=== PATIENT | female | born 1980 | race Caucasian/White ===

== ENCOUNTER 2021-03-30 15:19 | Emergency (ER) | payer BC, SELFPAY ==
--- NOTE | ~2021-03-30 | XR_ITS ---
EXAMINATION: XR chest 1V portable DATE: 03/30/2021 17:52 INDICATION: 4 days of cough and congestion TECHNIQUE: frontal view of the chest was obtained. COMPARISON: None FINDINGS: Increased interstitial and subtle groundglass opacities in the bilateral perihilar and infrahilar reg ions including some bronchial wall thickening. No pleural effusion or pneumothorax. The cardiomediast inal silhouette is within normal limits for AP technique. Visualized bones and soft tissues are unrem arkable. IMPRESSION: 1. Bronchial wall thickening and mild perihilar and infrahilar opacities which could represent bronch itis, pneumonia, reactive airway disease/asthma, mild pulmonary edema or some combination thereof. Reviewed, dictated and finalized at location H. ATER OPERATOR IMPRESSION: 1. Bronchial wall thickening and mild perihilar and infrahilar opacities which could represent bronchitis, pneumonia, reactive airway disease/asthma, mild pul monary edema or some combination thereof.
[2021-03-30 16:14] VITALS: BP 164/92; PULSE 84; RESP 18; TEMP 36.6; O2SAT 96
--- NOTE | 2021-03-30 17:39 | ECG_ITS ---
Measurements Intervals [place] Rate: 75 P: 53 IA: 169 QRS: 5 QRSD: 93 T: 11 QT: 379 QTc: 423 Interpretive Statements SINUS RHYTHM VOLTAGE CRITERIA FOR LVH BORDERLINE ECG Electronically Signed On 03-30-2021 21:04:47 FOLDER STITCHER OPERATOR by Tanner Vee D.O.
--- NOTE | 2021-03-30 17:42 | ED.GENADULT ---
HPI - General Adult General Chief complaint: Upper Respiratory Infection Stated complaint: cough/clements/fever Time Seen by Provider: 03/30/21 16:18 Source: patient Mode of arrival: ambulatory Limitations: no limitations History of Present Illness HPI narrative: Patient presents for evaluation of respiratory symptoms. Symptom onset 3 days ago. She reports a nonproductive cough with fever and shortness of breath. She has some chest tightness, which was worse yesterday than it is today. She reports sore throat. She had one episode of vomiting but attributes this to coughing. Otherwise, she denies any nausea or vomiting. Two of her children have similar symptoms. One of her children took a Covid test which was negative. She has not taken a Covid test. She has received both of her Covid vaccinations. She believes she had Covid back in November 2019 as she lost her sense of smell. That still has not returned. She does not smoke. No personal history of VTE. Compliant with OC. No additional complaints or concerns. Related Data Home Medications Medication Instructions Recorded Confirmed levonorgestrel-ethinyl estrad 03/30/21 03/30/21 pantoprazole PO 03/30/21 ropinirole mg 03/30/21 Allergies Allergy/AdvReac Type Severity Reaction Status Date / Time No Known Allergies Verified 03/30/21 16:38 Review of Systems Review of Systems: CONSTITUTIONAL: Reports fever. Denies chills. EYES: Denies visual changes, redness, or discharge. ENT: Reports sore throat. Denies rhinorrhea, congestion, or otalgia. CARDIOVASCULAR: Reports chest tightness. Denies palpitations, or edema. RESPIRATORY: Reports nonproductive cough and SOB. GASTROINTESTINAL: Reports one episode of emesis. Denies abdominal pain, nausea, or diarrhea. GENITOURINARY: Denies dysuria or hematuria. SKIN: Denies rash or itching. MUSCULOSKELETAL: Denies back pain, joint pain, or myalgia. NEUROLOGIC: Denies headache, numbness, dizziness, or weakness. PSYCHIATRIC: Denies anxiety or depression. [facility] Past Medical History Medical History (Updated 03/30/21 @ 19:43 by Pipo Tsang, KENIA, BC) No pertinent past medical history Surgical History Surgical History History of appendectomy History of cholecystectomy History of tonsillectomy Family History Family History Mother No pertinent past medical history Social History Social History (Updated 03/30/21 @ 17:49 by KENIA Pineda, ) Smoking status: Never smoker Substance use: never Living arrangements: with family Gender identity (if verbalized by the patient): Female Sexual Orientation (if Verbalized by the Patient): Straight or Heterosexual Spiritual care concerns: No Exam Narrative: GENERAL: Well-appearing, well-nourished, and in no acute distress. HEAD: Normocephalic, atraumatic. EYES: PERRLA and EOMI. ENT: Nares clear, no rhinorrhea or epistaxis. Mucous membranes moist. Absent tonsils. Posterior pharyngeal erythema without exudate. Bilateral TMs pearly berrios nonbulging NECK: Supple. No adenopathy or masses. No carotid bruits or JVD CHEST: Clear to auscultation. No respiratory distress. No wheezes rales or rhonchi HEART: Regular rate and rhythm. No murmur heard. Normal peripheral pulses. ABDOMEN: Soft, nontender, nondistended, normal active bowel sounds. EXTREMITIES: Normal range of motion. No edema. SKIN: Warm, dry, no rash. NEURO: No focal deficits. Alert and oriented x3. PSYCH: Normal mood and affect. Course Course Emergency Course: This is a 41-year-old female who presented with complaints of respiratory symptoms. Influenza and strep were negative. Labs were fairly benign. Chest x-ray questionable for pneumonia. Will treat as such given chief complaint. Plan to treat with azithromycin and amoxicillin. We will have her follow up outpatient for further evaluation
[2021-03-30] MEDS: ALBUTEROL SULFATE (*SP) AEROSOL 1 PUFF 2 PUFF INHALATION (18:08)
[2021-03-30 18:14] LABS: Basophils Percent Auto 0.6 % (0.2-1.2); Eosinophils Absolute Auto 0.2 K/mm3 (0-0.3); Eosinophils Percent Auto 3.3 % (0-4.4); Hematocrit 41.7 % (37.0-47.0); Hemoglobin 14.3 g/dL (12.0-15.0); Immature Granulocyte Absolute 0.01 K/mm3 (0.00-0.031); Immature Granulocyte Percent A 0.2 % (0-0.5); Lymphocytes Absolute Auto 1.87 K/mm3 (0.9-3.2); Lymphocytes Percent Auto 29.5 % (18.3-44.2); Mean Corpuscular HGB Conc 34.3 g/dl (32-36); Mean Corpuscular Hemoglobin 31.4 pg (26-34); Mean Corpuscular Volume 91.6 fl (80-100); Mean Platelet Volume 8.4 fl (7.4-10.4); Monocytes Absolute Auto 0.6 K/mm3 (0.1-0.6); Monocytes Percent Auto 9.2 % (2.6-8.5); Neutrophils Absolute Auto 3.6 K/mm3 (1.3-6.7); Neutrophils Percent Auto 57.2 % (45.5-73.1); Platelet Count Result 373 k/mm3 (150-375); Red Blood Count 4.55 M/mm3 (4.2-5.4); Red Cell Distribution Width 12.6 % (11.5-14.5); White Blood Count 6.3 K/mm3 (4.5-10.0)
[2021-03-30 18:23] LABS: Alanine Aminotransferase 25 U/L (4-35); Albumin Level 4.4 g/dL (3.5-5.1); Alkaline Phosphatase 86 U/L (38-126); Anion Gap 9 mmol/L (8-16); Aspartate Amino Transferase 34 U/L (14-36); Bilirubin,Total 0.7 mg/dL (0.2-1.3); Blood Urea Nitrogen 10 mg/dL (7-17); Calcium 9.1 mg/dL (8.4-10.2); Carbon Dioxide 23 mmol/L (22-30); Chloride 102 mmol/L (98-107); Estimated CRCL calculation 129 ml/min; Estimated Glomerular Filt Rate > 60; Glucose 107 mg/dL (65-110); Sodium 134 mmol/L (137-145)
[2021-03-30 18:35] LABS: Troponin I < 0.012 ng/mL (0.000-0.034)
[2021-03-30 20:03] VITALS: BP 139/94; PULSE 81; RESP 18; TEMP 37.3; O2SAT 100
[2021-03-31 17:04] LABS: SARS-CoV-2 RNA PCR Negative
== END 2021-03-30 20:02 | disposition home or self-care (01) ==
PROVIDERS: Emergency Provider Nurse Practitioner; PCP Internal Medicine
DX: J18.9 Pneumonia, unspecified organism (principal); Z20.822 Contact with and (suspected) exposure to COVID-19
CPT/HCPCS: 36415; 71045; 80053; 81025; 84484; 85025; 87081; 87804; 87880; 93005; 99283; A9270; C9803; U0003; U0005

== ENCOUNTER 2021-05-20 16:40 | Emergency (ER) | payer BC, SELFPAY ==
--- NOTE | ~2021-05-20 | CT_ITS ---
EXAMINATION: CT abdomen pelvis w con DATE: 05/20/2021 17:59 INDICATION: Mid abdominal pain TECHNIQUE: Computed tomography (CT) of the abdomen and pelvis was performed with 100 mL Omnipaque-350 intravenous contrast. Automated exposure control and iterative reconstruction technique were employe d. The dose-length product was 1265.85 mGy-cm. COMPARISON: None FINDINGS: Lung bases are clear. Heart size is normal. No pericardial or pleural effusion. Mild intrahepatic suma iary ductal dilation with normal caliber common bile duct, the former which may be related to prior c holecystectomy with surgical clips the gallbladder fossa. Spleen, pancreas, bilateral adrenal glands and kidneys are normal. Fluid-filled but not dilated loops of distal small bowel with additional flui d in the cecum. No abnormal bowel wall thickening or obstruction. The appendix is not visualized. No pericecal inflammatory change to suggest acute appendicitis. Bladder, uterus and bilateral adnexa are unremarkable. No free intraperitoneal gas or fluid. No pathologically enlarged abdominal or pelvic l ymphadenopathy. Mild lower thoracic spondylosis. IMPRESSION: 1. Mild intrahepatic biliary ductal dilation likely related to prior cholecystectomy but would correl ate with liver function tests. 2. Small amount of fluid in the distal small bowel and cecum which could be seen with an enteritis. Reviewed, dictated and finalized at location A. D AND FAMILY SERVICES WORKER IMPRESSION: 1. Mild intrahepatic biliary ductal dilation likely related to prior cholecyste ctomy but would correlate with liver function tests. 2. Small amount of fluid in the distal small bowel and cecum which could be see n with an enteritis.
[2021-05-20 16:49] VITALS: BP 162/78; PULSE 88; RESP 16; TEMP 37.1; O2SAT 100
--- NOTE | 2021-05-20 17:05 | ED.ABDPAIN ---
HPI - Abdominal Pain General Chief Complaint: Abdominal Pain Stated Complaint: abd pain Time Seen by Provider: 05/20/21 17:05 Source: patient and RN notes reviewed Mode of arrival: ambulatory Limitations: no limitations History of Present Illness HPI narrative: Patient is 41 years old white female presents with epigastric pain started 2 weeks ago. No radiation. Get worse within 10 minutes after eating. Patient denies any fever, chills. Patient had similar symptoms January 2021 got better on one course of antacid for 1 month. No patient reports intermittent nausea abdominal bloating and vomiting lately dizziness, general body aches. Patient drove herself to the emergency room. Last menstrual. For a while, patient on control pills. History of appendectomy, cholecystectomy, GERD, polycystic ovarian disease. Patient does not smoke or drink or uses drugs. Related Data Home Medications Medication Instructions Recorded Confirmed levonorgestrel-ethinyl estrad 03/30/21 03/30/21 pantoprazole PO 03/30/21 ropinirole mg 03/30/21 Allergies Allergy/AdvReac Type Severity Reaction Status Date / Time No Known Allergies Verified 05/20/21 16:49 Review of Systems Review of Systems: CONSTITUTIONAL: Denies fever, chills, or sweats. EYES: Denies visual changes, redness, or discharge. ENT: Denies rhinorrhea, congestion, sore throat, or otalgia. CARDIOVASCULAR: Denies chest pain, palpitations, or edema. RESPIRATORY: Denies cough or dyspnea. GASTROINTESTINAL: Denies abdominal pain, nausea, vomiting, or diarrhea. GENITOURINARY: Denies dysuria or hematuria. SKIN: Denies rash or itching. MUSCULOSKELETAL: Denies back pain, joint pain, or myalgia. NEUROLOGIC: Denies headache, numbness, or weakness. PSYCHIATRIC: Denies anxiety or depression. [facility] Past Medical History Medical History No pertinent past medical history Surgical History Surgical History History of appendectomy History of cholecystectomy History of tonsillectomy Family History Family History Mother No pertinent past medical history Social History Social History Smoking status: Never smoker Substance use: never Gender identity (if verbalized by the patient): Female Sexual Orientation (if Verbalized by the Patient): Straight or Heterosexual Spiritual care concerns: No Exam Narrative: General appearance: Well-developed, well-nourished Skin: Normal color Head: Normocephalic, nontraumatic Eyes: Clear conjunctiva ENT: Oropharynx normal, ears normal, nose normal Neck: Supple, nontender Chest and respiratory: Airway patent, no respiratory distress, no accessory muscle use Heart: Regular rate/rhythm Abdomen: Soft, mild diffuse tenderness mid abdomen and epigastric area, no organomegaly, quiet bowel sounds Vascular: Normal peripheral pulses, normal capillary refill. Musculoskeletal: Normal range of motion, nontender back Neurologic: Alert and oriented ?3, SNAKE CHARMER is normal as tested, no gross motor deficit Course Course Emergency Course: Stable Work-up showed possible enteritis. Currently patient on Protonix. The plan to discharge patient on Bentyl and to follow-up with atmospheric technician for further evaluation. Vital Signs Vital signs: Vital Signs Temperature 37.1 C 05/20/21 16:49 Pulse Rate 88 05/20/21 16:49 Respiratory Rate 16 05/20/21 16:49 Blood Pressure 162/78 H 05/20/21 16:49 Pulse Oximetry 100 05/20/21 16:49 Temperature 37.1 C 05/20/21
[2021-05-20 17:19] LABS: Basophils Percent Auto 0.3 % (0.2-1.2); Eosinophils Absolute Auto 0.1 K/mm3 (0-0.3); Hematocrit 42.1 % (37.0-47.0); Hemoglobin 14.2 g/dL (12.0-15.0); Immature Granulocyte Absolute 0.02 K/mm3 (0.00-0.031); Immature Granulocyte Percent A 0.3 % (0-0.5); Lymphocytes Absolute Auto 1.13 K/mm3 (0.9-3.2); Lymphocytes Percent Auto 14.7 % (18.3-44.2); Mean Corpuscular HGB Conc 33.7 g/dl (32-36); Mean Corpuscular Hemoglobin 31.4 pg (26-34); Mean Corpuscular Volume 93.1 fl (80-100); Mean Platelet Volume 8.5 fl (7.4-10.4); Monocytes Absolute Auto 0.5 K/mm3 (0.1-0.6); Monocytes Percent Auto 6.3 % (2.6-8.5); Neutrophils Absolute Auto 5.9 K/mm3 (1.3-6.7); Neutrophils Percent Auto 77.4 % (45.5-73.1); Platelet Count Result 297 k/mm3 (150-375); Red Blood Count 4.52 M/mm3 (4.2-5.4); Red Cell Distribution Width 12.7 % (11.5-14.5); White Blood Count 7.7 K/mm3 (4.5-10.0)
[2021-05-20 17:28] LABS: Add Urine Microscopic? YES; Appearance Urine Clear (Clear); Bacteria Urine Trace /hpf; Bilirubin Urine Negative (Negative); Blood Urine 2+ (Negative); Color Urine Yellow (Yellow); Glucose Urine UA Negative (Negative); Ketones Urine Negative (Negative); Leukocyte Esterase Ur Negative LEU/UL (Negative); Mucus Urine Rare /lpf; Nitrate Urine Negative (Negative); Protein Urine Negative (Negative); Specific Grav Ur 1.015 (1.001-1.035); Squamous Epithelial Cell Urine Many /hpf (Few); WBC Urine 0-3 /hpf
[2021-05-20 17:39] LABS: Alanine Aminotransferase 21 U/L (4-35); Albumin Level 4.2 g/dL (3.5-5.1); Alkaline Phosphatase 76 U/L (38-126); Anion Gap 6 mmol/L (8-16); Aspartate Amino Transferase 22 U/L (14-36); Bilirubin,Total 1.3 mg/dL (0.2-1.3); Blood Urea Nitrogen 8 mg/dL (7-17); Calcium 7.8 mg/dL (8.4-10.2); Carbon Dioxide 28 mmol/L (22-30); Chloride 100 mmol/L (98-107); Estimated Glomerular Filt Rate > 60; Glucose 109 mg/dL (65-110); Lipase 43 U/L (23-300); Potassium 3.4 mmol/L (3.4-5.0); Sodium 134 mmol/L (137-145)
[2021-05-20] MEDS: SODIUM CHLORIDE 0.9% IV 1,000 ML 999 ML IV CONT (18:56)
[2021-05-20 19:38] VITALS: BP 149/96; PULSE 84; RESP 15; O2SAT 98
== END 2021-05-20 20:04 | disposition home or self-care (01) ==
PROVIDERS: Emergency Medicine; Emergency Provider Emergency Medicine; PCP Internal Medicine
DX: K52.9 Noninfective gastroenteritis and colitis, unspecified (principal)
CPT/HCPCS: 36415; 74177; 80053; 81001; 81025; 83690; 85025; 99284; J7030; Q9967

== ENCOUNTER 2022-12-05 11:06 | Outpatient (CLI) | payer BC, SELFPAY ==
--- NOTE | 2022-12-05 11:21 | ECG_ITS ---
Measurements Intervals [place] Rate: 66 P: 57 CA: 167 QRS: -8 QRSD: 101 T: -8 QT: 401 QTc: 423 Interpretive Statements SINUS RHYTHM WITH SINUS ARRHYTHMIA VOLTAGE CRITERIA FOR LVH BORDERLINE T WAVE ABNORMALITY- INFERIOR LEADS BASELINE ARTIFACT- I, II, III BORDERLINE ECG COMPARED TO ECG 03/30/2021 18:32:26 SINUS ARRHYTHMIA NOW PRESENT Electronically Signed On 12-05-2022 12:35:31 CDT by Tanner Vee D.O.
== END 2022-12-05 11:07 | disposition home or self-care (01) ==
PROVIDERS: PCP Internal Medicine
DX: Z01.810 Encounter for preprocedural cardiovascular examination (principal); R94.31 Abnormal electrocardiogram [ECG] [EKG]; I49.8 Other specified cardiac arrhythmias
CPT/HCPCS: 93005

== ENCOUNTER 2023-08-07 14:45 | Outpatient (CLI) | payer BC, SELFPAY ==
--- NOTE | ~2023-08-07 | MM_ITS ---
EXAMINATION: MM screening [facility] BI w delmi HISTORY: Screening mammogram TECHNIQUE: Craniocaudal and mediolateral oblique 3-D tomosynthesis images were obtained and synthetic 2-D images were generated. CAD analysis was submitted and interpreted. COMPARISON: No prior mammogram is available for comparison at this institution. BREAST PARENCHYMAL COMPOSITION: There are scattered areas of fibroglandular density. FINDINGS: There is no evidence of suspicious mass, calcification, or architectural distortion to sugg est malignancy in either breast. IMPRESSION: 1. No mammographic evidence of malignancy. 2. Recommend routine screening mammography in one year. BI-RADS Category 1: Negative Reviewed, dictated and finalized at location A.
== END 2023-08-07 14:46 ==
PROVIDERS: PCP Nurse Practitioner; Visit Provider Obstetrics & Gynecology Gynecology
DX: Z12.31 Encounter for screening mammogram for malignant neoplasm of breast (principal)
CPT/HCPCS: 77063; 77067

== ENCOUNTER 2024-08-15 15:40 | Outpatient (CLI) | payer BC, SELFPAY ==
--- NOTE | ~2024-08-15 | US_ITS ---
EXAMINATION: US pelvic complete DATE: 08/15/2024 15:56 INDICATION: Other intra-abdominal and pelvic swelling, mass and lump TECHNIQUE: Multiple transabdominal sonographic images of the pelvis were obtained. COMPARISON: CT abdomen pelvis 05/20/2021. FINDINGS: Uterus: 7.9 x 3.1 x 3.8 cm. Endometrial complex measures 3 mm. Right Ovary: 2.5 x 1.4 x 1.6 cm. Vascular flow is present. No adnexal mass Left Ovary: 2.3 x 1.7 x 2.5 cm. Vascular flow is present. No adnexal mass. There is no free fluid in the pelvis. IMPRESSION: Normal transabdominal pelvic sonogram findings. Reviewed, dictated and finalized at location K.
== END 2024-08-15 15:41 | disposition home or self-care (01) ==
LOC: MICIMG 15:42
PROVIDERS: PCP Nurse Practitioner; Visit Provider Nurse Practitioner
DX: R19.09 Other intra-abdominal and pelvic swelling, mass and lump (principal)
CPT/HCPCS: 76856

== ENCOUNTER 2024-09-15 15:35 | Outpatient (CLI) | payer BC, SELFPAY ==
--- NOTE | ~2024-09-15 | CT_ITS ---
CT of the Pelvis: Indication: Pelvic mass Technique: 2.5 mm axial scans were obtained through the pelvis prior to and following intravenous ad ministration of 100 cc of Omnipaque 350. Dose reduction technique was used on this scan by utilizing automated exposure control and iterative reconstruction technique. The dose-length product (DLP) was 706.68 mGy-cm. Findings: Visualized bowel loops are unremarkable. No bowel obstruction or definite bowel wall thicke brianna identified. No ascites evident. Urinary bladder unremarkable. No adnexal mass evident. No fracture or dislocation seen. Joint spaces are intact. Impression: No significant abnormalities seen. No abnormal pelvic mass identified. Reviewed, dictated and finalized at location . Impression: No significant abnormalities seen. No abnormal pelvic mass identified.
== END 2024-09-15 15:36 | disposition home or self-care (01) ==
LOC: MICIMG 15:36
PROVIDERS: PCP Nurse Practitioner; Visit Provider Nurse Practitioner
DX: R19.09 Other intra-abdominal and pelvic swelling, mass and lump (principal)
CPT/HCPCS: 72194; Q9967

== ENCOUNTER 2025-01-20 15:15 | Outpatient (CLI) | payer BC, SELFPAY ==
--- NOTE | ~2025-01-20 | MM_ITS ---
EXAMINATION: MM screening nikita BI w delmi HISTORY: Screening TECHNIQUE: Craniocaudal and mediolateral oblique 3-D tomosynthesis images were obtained and synthetic 2-D images were generated. CAD analysis was submitted and interpreted. COMPARISON: 08/07/2023 BREAST PARENCHYMAL COMPOSITION: There are scattered areas of fibroglandular density. FINDINGS: There is no evidence of suspicious mass, calcification, or architectural distortion to suggest malignancy in either breast. IMPRESSION: 1. No mammographic evidence of malignancy. 2. Recommend routine screening mammography in one year. BI-RADS Category 1: Negative Reviewed, dictated and finalized at location B.
== END 2025-01-20 15:16 | disposition home or self-care (01) ==
LOC: MICIMG 15:15
PROVIDERS: PCP Nurse Practitioner; Visit Provider Nurse Practitioner
DX: Z12.31 Encounter for screening mammogram for malignant neoplasm of breast (principal)
CPT/HCPCS: 77063; 77067